=== PATIENT | male | born 1950 | race Caucasian/White ===

== ENCOUNTER 2025-01-24 08:45 | Outpatient (CLI) | payer BC ==
[2025-01-24 10:18] LABS: Estimated GFR - POC 70.0
[2025-01-24] MEDS ORDERED: Iopamidol 300 61% 100 ML VIAL FS ONE (12:48)
== END 2025-01-24 08:46 | disposition home or self-care (01) ==
LOC: CSHCT 08:45
PROVIDERS: ATTEND Family Medicine
DX: Z80.0 Family history of malignant neoplasm of digestive organs (principal); R19.8 Other specified symptoms and signs involving the digestive system and abdomen; D64.9 Anemia, unspecified; R19.03 Right lower quadrant abdominal swelling, mass and lump; N41.1 Chronic prostatitis; N40.0 Benign prostatic hyperplasia without lower urinary tract symptoms; N28.1 Cyst of kidney, acquired
CPT/HCPCS: 36415; 74178; 82565; Q9967